=== PATIENT | female | born 1945 | race Caucasian/White ===

== ENCOUNTER 2020-06-20 09:22 | Emergency (ER) | payer MEDICARE ==
[~2020-06-20 09:22] MED LIST: APIX5TAB PO; DRON400T2 PO; LISI-617 PO; METO-408 PO; ZOLP10TA6 PO
[2020-06-20 09:41] LABS: BASOPHILS % (AUTO) 0.5 % (0.0-5.0); EOSINOPHILS % (AUTO) 1.3 % (0.0-8.0); HEMATOCRIT 45.1 % (36-48); LYMPHOCYTES % (AUTO) 20.1 % (21.0-51.0); MEAN CORPUSCULAR HEMOGLOBIN 31.8 pg (27.0-33.0); MEAN CORPUSCULAR HGB CONC 32.8 g/dL (32.0-36.0); MONOCYTES % (AUTO) 10.1 % (3.0-13.0); NEUTROPHILS % (AUTO) 67.7 % (40.0-77.0); PLATELET COUNT (AUTO) 256 K/uL (130-400); RED BLOOD CELL COUNT(AUTO) 4.65 MIL/uL (4.00-5.50); RED CELL DISTRIBUTION WIDTH 13.9 % (11.0-15.5); WHITE BLOOD COUNT (AUTO) 9.6 K/uL (4.8-10.8)
[2020-06-20 09:45] LABS: APPEARANCE,URINE Clear (CLEAR); BILIRUBIN,URINE Negative (NEGATIVE); COLOR,URINE Yellow (YELLOW); GLUCOSE, URINE (UA) Negative (NEGATIVE); KETONES,URINE Negative (NEGATIVE); LEUKOCYTE ESTERASE ,URINE Trace (NEGATIVE); NITRATE,URINE Negative (NEGATIVE); OCCULT BLOOD,URINE Negative (NEGATIVE); PROTEIN,URINE Negative (NEGATIVE)
[2020-06-20 09:58] LABS: INR 1.01 (0.85-1.15); PARTIAL THROMBOPLASTIN TIME 27.1 SEC (26.3-35.5); PROTHROMBIN TIME 10.9 SEC (9.6-11.6)
[2020-06-20 10:00] LABS: BACTERIA,URINE Rare /HPF (None Seen); RBC,URINE 0-1 /HPF (0-1); SQUAMOUS EPITHELIAL CELL,UR Rare /HPF (0-2)
[2020-06-20 10:03] LABS: ALBUMIN 3.3 g/dL (3.5-5.0); BILIRUBIN,TOTAL 0.7 mg/dL (0.2-1.0); POTASSIUM 4.4 mmol/L (3.5-5.1); TOTAL PROTEIN, SERUM 6.6 g/dL (6.0-8.3)
[2020-06-20] MEDS ORDERED: LEVOFLOXACIN 500 MG/D5W 100 ML 100 ML ONE (11:58)
== END 2020-06-20 14:07 | disposition home or self-care (01) ==
LOC: EDH 09:22
DX: N30.00 Acute cystitis without hematuria (principal); I48.20 Chronic atrial fibrillation, unspecified
CPT/HCPCS: 36415; 71045; 80053; 81001; 82550; 83605; 83690; 83880; 84145; 84484; 85025; 85610; 85730; 87077; 87088; 87186; 93005; 96365; 99285; J1956

== ENCOUNTER → 2021-10-11 | Outpatient (CLI) | payer MEDICARE ==
[~2021-10-11] MED LIST changes: -DRON400T2 PO; +DRON400T7 PO; -LISI-617 PO; +LISI5TAB21 PO
== END | disposition home or self-care (01) ==
LOC: RAH 12:47
PROVIDERS: ATTEND Internal Medicine
DX: M47.26 Other spondylosis with radiculopathy, lumbar region (principal); M48.061 Spinal stenosis, lumbar region without neurogenic claudication; M41.84 Other forms of scoliosis, thoracic region
CPT/HCPCS: 72131

== ENCOUNTER → 2021-12-12 | Outpatient (CLI) | payer MEDICARE | END | disposition home or self-care (01) | LOC: SHCH 13:57 | PROVIDERS: ATTEND Internal Medicine Cardiovascular Disease | DX: I51.7 Cardiomegaly (principal); I50.20 Unspecified systolic (congestive) heart failure; R60.9 Edema, unspecified | CPT/HCPCS: 93306; 93970 ==